=== PATIENT | female | born 1995 | race Caucasian/White ===

== ENCOUNTER 2024-10-15 17:08 | Emergency (ER) | payer OTHER ==
[~2024-10-15] VITALS: Ht 167.6 cm; Wt 63.5 kg
[2024-10-15 17:26] VITALS: BP 126/77; TEMP 98.7; O2SAT 99
[2024-10-15] MEDS: IBUPROFEN 600 MG TABLET PO ONE (19:29)
[2024-10-15] MEDS ORDERED: IBUPROFEN 600 MG TABLET ONE (19:29)
[2024-10-15] MEDS ORDERED: IBUP-1953 PO (21:40)
== END 2024-10-15 21:56 | disposition home or self-care (01) ==
LOC: ER 17:12
DX: M79.18 Myalgia, other site (principal); M79.602 Pain in left arm; M25.512 Pain in left shoulder; R07.81 Pleurodynia; Z60.2 Problems related to living alone; W18.39XA Other fall on same level, initial encounter; Y93.89 Activity, other specified; Y92.89 Other specified places as the place of occurrence of the external cause; Y99.8 Other external cause status
CPT/HCPCS: 71100-TC; 73030-TC